=== PATIENT | female | born 1985 | race Caucasian/White ===

== ENCOUNTER 2017-12-15 06:42 | Emergency (ER) | payer OTHER ==
[~2017-12-15] VITALS: Ht 160 cm; Wt 107.5 kg
[~2017-12-15 06:42] MED LIST: AUGMENTIN 875875 MG PO; BENTYL20 MG PO; BEYAZ 28 TABLE1 EACH PO; CELEXA 10 MG TA10 M1 PO; CLARITIN10 M2 PO; CLEOCIN HCL150 MG PO; DOXYCYCLINE 10100 MG PO; HYDROXYZINE HCL25 M2 PO; LEVOTHYROXINE0.05 MG; MULTIVITAMINS1 EAC7; NORCO 5-325 TA1 EACH PO; PERCOCET 5-3251 EACH; PHENERGAN 25 MG25 M1 PO; PREMARIN1.25 MG PO; ROBAXIN500 MG PO; SINGULAIR 10 MG10 M1; SINGULAIR 10 MG10 M1 PO; SPRINTEC1 EACH; TOPAMAX; ZANTAC 150MG T150 M1; ZOFRAN ODT4 MG PO
[2017-12-15] MEDS ORDERED: SOLU-MEDRO40 MG/1 M2 PO (07:00)
[2017-12-15 07:32] LABS: URINE BILIRUBIN NEGATIVE (Negative); URINE BLOOD 1+ (Negative); URINE CLARITY CLEAR; URINE COLOR YELLOW; URINE GLUCOSE-RANDOM NEGATIVE (Negative); URINE KETONES NEGATIVE (Negative); URINE LEUKOCYTES-REFLEX NEGATIVE (Negative); URINE NITRITE-REFLEX NEGATIVE (Negative); URINE PROTEIN NEGATIVE (Negative); URINE SPECIFIC GRAVITY >= 1.030 (1.005-1.030); URINE UROBILINOGEN 0.2 E.U./dl (0.2-1.0)
[2017-12-15 07:33] LABS: ABSOLUTE BASOPHILS 0.1 thou/uL (0.0-0.2); ABSOLUTE LYMPHOCYTES 1.9 thou/uL (0.8-5.3); ABSOLUTE MONOCYTES 1.1 thou/uL (0.0-1.2); ABSOLUTE NEUTROPHILS 10.3 thou/uL (1.6-8.1); BASOPHILS 0.5 %; HEMATOCRIT 43.7 % (37.0-47.0); HEMOGLOBIN 14.5 gm/dL (12.0-15.0); LYMPHOCYTES 14.3 %; MCH 31.2 pg (26.0-34.0); MCHC 33.2 g/dL (28.0-37.0); MONOCYTES 7.9 %; MPV 8.8 fl. (7.2-11.1); NUCLEATED RBCS 0 /100WBC; PLATELET COUNT* 330 thou/uL (150-400); POLYS 77.3 %; RBC 4.65 mil/uL (4.20-5.00); RDW-CV 13.4 % (10.5-14.5); WBC 13.3 thou/uL (4.0-11.0)
[2017-12-15 07:37] LABS: CALCIUM 8.4 mg/dL (8.5-10.1); CREATININE 0.8 mg/dL (0.6-1.3); POTASSIUM 3.4 mmol/L (3.5-5.1)
[2017-12-15 07:42] LABS: CASTS None Seen /LPF (None Seen); CRYSTALS None Seen /LPF (None Seen); SQUAMOUS >10 Many /LPF (0-3); URINE WBC-REFLEX 6-15 Few /HPF (0-5)
[2017-12-15 07:42] LABS: ALBUMIN 3.3 g/dL (3.4-5.0); TOTAL BILIRUBIN 0.3 mg/dL (<0.1-1.0); TOTAL PROTEIN 7.8 g/dL (6.4-8.2)
[2017-12-15 07:43] LABS: BACTERIA-REFLEX 1-9 Few /HPF (None Seen); MUCUS 4-6 Moderate strn/LPF (None Seen); URINE RBC None Seen /HPF (0-2)
[2017-12-15] MEDS ORDERED: FLAGYL 250 MG250 MG PO (09:11)
[2017-12-15] MEDS ORDERED: CIPROFLOXACIN500 M1 PO (09:11)
[2017-12-15 09:18] VITALS: BP 132/85
== END 2017-12-15 09:19 | disposition home or self-care (01) ==
LOC: M.ERS 06:42
PROVIDERS: Personal Emergency Response Attendant
DX: R19.7 Diarrhea, unspecified (principal); G43.909 Migraine, unspecified, not intractable, without status migrainosus; E03.9 Hypothyroidism, unspecified; F10.99 Alcohol use, unspecified with unspecified alcohol-induced disorder

== ENCOUNTER 2020-09-10 20:13 | Emergency (ER) | payer OTHER ==
[~2020-09-10] VITALS: Ht 160 cm; Wt 115.2 kg
[~2020-09-10 20:13] MED LIST changes: +CIPROFLOXACIN500 M1 PO; +FLAGYL 250 MG250 MG PO; +SOLU-MEDRO40 MG/1 M2 PO
[2020-09-10] MEDS ORDERED: LISINOPRIL-HCT1 EAC2 PO (21:52)
[2020-09-10] MEDS ORDERED: CELEXA 10 MG TA10 M1 PO (21:52)
[2020-09-10] MEDS ORDERED: VALTREX 500 MG500 M1 PO (21:53)
[2020-09-10] MEDS ORDERED: LEVO-T50 MCG PO (21:53)
[2020-09-10] MEDS ORDERED: ZINC SULFATE220 MG PO (21:53)
[2020-09-10 21:55] LABS: URINE BILIRUBIN NEGATIVE (Negative); URINE BLOOD TRACE (Negative); URINE CLARITY CLEAR; URINE COLOR YELLOW; URINE GLUCOSE-RANDOM NEGATIVE (Negative); URINE KETONES NEGATIVE (Negative); URINE LEUKOCYTES-REFLEX NEGATIVE (Negative); URINE NITRITE-REFLEX NEGATIVE (Negative); URINE PROTEIN NEGATIVE (Negative); URINE UROBILINOGEN 0.2 E.U./dl (0.2-1.0)
[2020-09-10] MEDS ORDERED: FLEXERIL PO (23:47)
[2020-09-10] MEDS ORDERED: HYDROCODON-ACE1 EAC8 PO (23:47)
[2020-09-10 23:57] VITALS: BP 137/91
== END 2020-09-10 23:58 | disposition home or self-care (01) ==
LOC: M.ERS 20:13
PROVIDERS: Physician Assistant
DX: M54.5 Low back pain (principal); R39.15 Urgency of urination; R11.0 Nausea; G43.909 Migraine, unspecified, not intractable, without status migrainosus; E03.9 Hypothyroidism, unspecified; Z90.89 Acquired absence of other organs; Z90.49 Acquired absence of other specified parts of digestive tract; Z79.899 Other long term (current) drug therapy